=== PATIENT | female | born 1955 | race Caucasian/White ===

== ENCOUNTER 2018-10-25 12:09 | Inpatient (IN) | payer MEDICAID ==
[~2018-10-25] VITALS: Ht 165.1 cm; Wt 52.0 kg
[~2018-10-25 12:09] MED LIST: ALBU8.5H8 INH; BUPR1FIL3 SL; FLUT1DIS4 INH; GABA-532 PO
[2018-10-25 13:27] LABS: BASOPHILS # (AUTO) 0.1 X10'3 (0-0.2); MEAN PLATELET VOLUME 7.3 FL (7.4-10.4); PLATELET COUNT 385 X10'3 (140-440)
[2018-10-25 13:28] LABS: BASOPHILS % (AUTO) 0.5 % (0-1); EOSINOPHILS # (AUTO) 0.1 X10'3 (0-0.9); EOSINOPHILS % (AUTO) 0.3 % (0-6); HEMATOCRIT 39.1 % (35.0-45.0); HEMOGLOBIN 13.1 g/dl (12.0-16.0); LYMPHOCYTES # (AUTO) 1.2 X10'3 (1.1-4.8); LYMPHOCYTES % (AUTO) 6.3 % (21-51); MEAN CORPUSCULAR HEMOGLOBIN 30.6 PG (27.0-31.0); MEAN CORPUSCULAR HGB CONC 33.6 g/dL (33.0-36.5); MEAN CORPUSCULAR VOLUME 91.1 FL (78-98); MONOCYTES # (AUTO) 1.4 X10'3 (0-0.9); MONOCYTES % (AUTO) 7.3 % (2-12); NEUTROPHILS # (AUTO) 16.8 X10'3 (1.8-7.7); NEUTROPHILS % (AUTO) 85.6 % (42-75); RED BLOOD COUNT 4.29 X10'6 (4.20-5.60); RED CELL DISTRIBUTION WIDTH 14.7 % (11.5-14.5); WHITE BLOOD COUNT 19.6 X10'3 (4.5-11.0)
[2018-10-25 13:32] LABS: ALANINE AMINOTRANSFERASE 22 U/L (12-78); ALBUMIN 2.8 G/DL (3.4-5.0); ALBUMIN/GLOBULIN RATIO 0.6 (1.1-1.5); ALKALINE PHOSPHATASE 115 IU/L (46-116); ANION GAP 8 (8-16); ASPARTATE AMINO TRANSFERASE 14 U/L (10-37); BILIRUBIN,TOTAL 0.4 MG/DL (0.1-1.0); BLOOD UREA NITROGEN 12 MG/DL (7-18); BUN/CREATININE RATIO 12.6 (6.6-38.0); CALCIUM 9.8 MG/DL (8.5-10.1); CHLORIDE 97 MMOL/L (99-107); CREATININE 0.95 MG/DL (0.40-0.90); GLUCOSE 116 MG/DL (70-104); POTASSIUM 4.1 MMOL/L (3.5-5.1); SODIUM 132 MMOL/L (135-145); TOTAL CARBON DIOXIDE 27.4 MMOL/L (24-32); TOTAL PROTEIN 7.3 G/DL (6.4-8.2); eGFR 59 ML/MIN
[2018-10-25 13:59] LABS: PLATELET ESTIMATE NORMAL; TOTAL CELLS COUNTED 100
[2018-10-25 14:13] LABS: CLARITY,URINE CLEAR (Clear); COLOR,URINE YELLOW (Yellow); GLUCOSE, URINE NEGATIVE (Neg); KETONES,URINE NEGATIVE (Neg); LEUKOCYTE ESTERASE ,URINE NEGATIVE (Neg); NITRITES, URINE NEGATIVE (Neg); OCCULT BLOOD,URINE SMALL (Neg); PROTEIN,URINE NEGATIVE (Neg); UROBILINOGEN,URINE 0.2 E.U/dL (0.2-1.0)
[2018-10-25 14:24] LABS: UA COLLECTION TYPE CLN CATCH MIDSTREAM
[2018-10-25 14:25] LABS: BACTERIA,URINE FEW /HPF (Neg); SQUAMOUS EPITHELIAL CELL,UR FEW /LPF (FEW); WBC,URINE 0-4 /HPF (0-4)
[2018-10-25] MEDS ORDERED: CefTRIAXone 2gm/D5W 50ml 50 ML IV ONE (14:50)
[2018-10-25] MEDS ORDERED: normal saline 1000ML IV soln IV ONE (14:50)
[2018-10-25] MEDS ORDERED: methylPREDNISolone sod succ 125mg/2ml vial IV ONE (14:55)
[2018-10-25] MEDS ORDERED: ipratropium/albuterol 3ml nebule NEB ONE (14:55)
[2018-10-25] MEDS ORDERED: diphenhydrAMINE 25mg capsule PO PRN (15:05)
[2018-10-25] MEDS ORDERED: potassium Cl 20 mEq SR tablet PO PRN ×2 (15:05)
[2018-10-25] MEDS: K and/or MAG REPLACEMENT MC SCH (15:05)
[2018-10-25] MEDS ORDERED: acetaminophen 325mg tablet PO PRN ×2 (15:05)
[2018-10-25] MEDS ORDERED: HYDROcodone/acetaminophen 5mg/325mg tablet PO PRN (15:05)
[2018-10-25] MEDS ORDERED: potassium Cl 40MEQ/NS 500ml 500 ML IV PRN ×2 (15:05)
[2018-10-25] MEDS ORDERED: mag hydrox/Alum hydrox/simeth 30ml oral suspension PO PRN (15:05)
[2018-10-25] MEDS ORDERED: ondansetron/PF 4mg/2ml inj IV PRN (15:05)
[2018-10-25] MEDS ORDERED: magnesium 4gm in 100ml NS 100 ML IV PRN (15:05)
[2018-10-25] MEDS ORDERED: magnesium hydroxide 30ml (MOM) UD suspension PO PRN (15:05)
[2018-10-25] MEDS ORDERED: magnesium Cl slow-release 64mg tablet PO PRN (15:05)
[2018-10-25] MEDS ORDERED: magnesium 2GM in 50ml NS 50 ML IV PRN (15:05)
[2018-10-25] MEDS ORDERED: morphine 4 MG/ML inj SYRINge IV PRN (15:05)
[2018-10-25 15:19] LABS: MAGNESIUM 2.1 MG/DL (1.5-2.4)
[2018-10-25 15:27] LABS: PARTIAL THROMBOPLASTIN TIME 41 SECONDS (22-32)
[2018-10-25] MEDS ORDERED: ALBU2.5V12 NEB (15:44)
[2018-10-25] MEDS ORDERED: FLUT1DIS4 INH (15:44)
[2018-10-25] MEDS ORDERED: AMIT-189 PO (15:44)
[2018-10-25] MEDS: levoFLOXACIN-Levaquin 750MG/D5 150 ML IV SCH (15:51)
[2018-10-25] MEDS ORDERED: non-formulary drug (Albuterol Sulfate 1 VIAL) NEB PRN (17:25)
[2018-10-25] MEDS ORDERED: albuterol 2.5 MG/3 ML nebule NEB PRN (17:25)
[2018-10-25] MEDS: normal saline 1000ml 1,000 ML IV SCH (17:26)
[2018-10-25] MEDS ORDERED: nicotine 21mg patch - 24 hr TD ONE (18:10)
[2018-10-25 18:23] LABS: URINE HCG NEGATIVE (NEG)
[2018-10-25 18:32] LABS: URINE AMPHETAMINE SCREEN NEGATIVE (Neg); URINE BARBITUATE SCREEN NEGATIVE (Neg); URINE BENZODIAZEPINES SCREEN NEGATIVE (Neg); URINE CANNABINOID SCREEN NEGATIVE (Neg); URINE COCAINE SCREEN NEGATIVE (Neg); URINE METHADONE SCREEN NEGATIVE (Neg); URINE OPIATE SCREEN NEGATIVE (Neg); URINE PHENCYCLIDINE SCREEN NEGATIVE (Neg)
[2018-10-25] MEDS ORDERED: albuterol 2.5 MG/3 ML nebule NEB SCH (19:00)
[2018-10-25 20:00] VITALS: BP 97/52
[2018-10-25] MEDS ORDERED: non-formulary drug (Fluticasone/Salmeterol (Advair 250-50 Diskus) 1 PUFFS) INH SCH (20:00)
--- NOTE | 2018-10-25 20:13 | NUR ---
REPORT CALLED TO LEORA VARGAS, REVIEWED PT CURRENT CONDITION, LABS AND DIAGNOSIS. I ANSWERED HER QUESTIONS TO THE BEST OF MY KNOWLEDGE. PT TRANSPORTED WITH HER BELONGINGS TO THE FLOOR.
--- NOTE | 2018-10-25 20:30 | NUR ---
Pt report received from Az VARGAS in the ED. Pt arrived on the unit via gurney at 2030. VSS, NS running at 100, O2 via NC at 2L. Pt placed on tele #6. No signs of distress, will continue to monitor.
[2018-10-25] MEDS: ipratropium/albuterol 3ml nebule NEB SCH ×2 (20:35→23:36)
[2018-10-25] MEDS: budesonide 0.5mg/2ml UD nebule IH SCH (20:35)
[2018-10-25] MEDS: amitryptiline 50mg tablet PO SCH (21:00)
[2018-10-25] MEDS: gabapentin 300mg capsule PO SCH (21:12)
[2018-10-25] MEDS: heparin, porcine 5000 units/ml vial SQ SCH (21:13)
[2018-10-25] MEDS: methylPREDNISolone sod succ 125mg/2ml vial IV SCH (21:13)
[2018-10-26] VITALS: BP 121/53
[2018-10-26] MEDS: zolpidem 5mg tablet PO PRN (00:54)
[2018-10-26] MEDS: normal saline 1000ml 1,000 ML IV SCH (00:59)
[2018-10-26] MEDS: methylPREDNISolone sod succ 125mg/2ml vial IV SCH ×4 (02:19→21:10)
[2018-10-26] MEDS: ipratropium/albuterol 3ml nebule NEB SCH ×7 (03:16→23:02)
[2018-10-26 05:09] LABS: BASOPHILS # (AUTO) 0.1 X10'3 (0-0.2); BASOPHILS % (AUTO) 0.4 % (0-1); EOSINOPHILS % (AUTO) 0 % (0-6); HEMATOCRIT 35.5 % (35.0-45.0); HEMOGLOBIN 11.6 g/dl (12.0-16.0); LYMPHOCYTES # (AUTO) 0.8 X10'3 (1.1-4.8); LYMPHOCYTES % (AUTO) 5.1 % (21-51); MEAN CORPUSCULAR HEMOGLOBIN 30.1 PG (27.0-31.0); MEAN CORPUSCULAR HGB CONC 32.6 g/dL (33.0-36.5); MEAN CORPUSCULAR VOLUME 92.3 FL (78-98); MEAN PLATELET VOLUME 7.5 FL (7.4-10.4); MONOCYTES # (AUTO) 0.3 X10'3 (0-0.9); MONOCYTES % (AUTO) 2.2 % (2-12); NEUTROPHILS # (AUTO) 14.5 X10'3 (1.8-7.7); NEUTROPHILS % (AUTO) 92.3 % (42-75); PLATELET COUNT 373 X10'3 (140-440); RED BLOOD COUNT 3.85 X10'6 (4.20-5.60); WHITE BLOOD COUNT 15.7 X10'3 (4.5-11.0)
[2018-10-26 05:40] LABS: ALANINE AMINOTRANSFERASE 20 U/L (12-78); ALBUMIN 2.3 G/DL (3.4-5.0); ALBUMIN/GLOBULIN RATIO 0.6 (1.1-1.5); ALKALINE PHOSPHATASE 98 IU/L (46-116); ANION GAP 9 (8-16); ASPARTATE AMINO TRANSFERASE 14 U/L (10-37); BILIRUBIN,TOTAL 0.1 MG/DL (0.1-1.0); BLOOD UREA NITROGEN 10 MG/DL (7-18); BUN/CREATININE RATIO 10.6 (6.6-38.0); CALCIUM 9.1 MG/DL (8.5-10.1); CHLORIDE 105 MMOL/L (99-107); CREATININE 0.94 MG/DL (0.40-0.90); GLUCOSE 250 MG/DL (70-104); MAGNESIUM 1.9 MG/DL (1.5-2.4); PHOSPHORUS 2.5 MG/DL (2.3-4.5); POTASSIUM 3.4 MMOL/L (3.5-5.1); SODIUM 139 MMOL/L (135-145); TOTAL CARBON DIOXIDE 24.6 MMOL/L (24-32); TOTAL PROTEIN 6.4 G/DL (6.4-8.2); eGFR 60 ML/MIN
--- NOTE | 2018-10-26 06:39 | NUR ---
Problems reprioritized. Patient report given, questions answered & plan of care reviewed with Clara VARGAS.
[2018-10-26 08:00] VITALS: BP 119/67
[2018-10-26] MEDS: K and/or MAG REPLACEMENT MC SCH (08:00)
[2018-10-26] MEDS ORDERED: NALOXONE HCL SL SCH (08:00)
[2018-10-26] MEDS ORDERED: BUPRENORPHINE HCL SL SCH (08:00)
[2018-10-26] MEDS ORDERED: [UNRECOGNIZED DRUG - OTHER] SL SCH (08:00)
[2018-10-26] MEDS: heparin, porcine 5000 units/ml vial SQ SCH ×2 (08:54→21:10)
[2018-10-26] MEDS: buprenorphine/naloxone 8MG-2MG SUBlingual film SL SCH (08:58)
[2018-10-26] MEDS: levoFLOXACIN-Levaquin 750MG/D5 150 ML IV SCH (08:58)
[2018-10-26] MEDS: gabapentin 300mg capsule PO SCH ×2 (08:58→13:00)
[2018-10-26] MEDS: budesonide 0.5mg/2ml UD nebule IH SCH ×2 (11:39→20:12)
[2018-10-26 12:00] VITALS: BP 117/68
--- NOTE | 2018-10-26 18:29 | NUR ---
Patient in room [facility] 355. I have received report from ALICIA Elizabeth and had the opportunity to ask questions and assume patient care. Addendum: 10/26/18 at 1829 by Jill Fitzgerald RN Amended: Links added.
[2018-10-26 20:00] VITALS: BP 92/50
[2018-10-26] MEDS: gabapentin 400mg capsule PO SCH (21:10)
[2018-10-26] MEDS: amitryptiline 50mg tablet PO SCH (21:10)
[2018-10-27] VITALS: BP 113/64
[2018-10-27] MEDS: zolpidem 5mg tablet PO PRN (02:33)
[2018-10-27] MEDS: methylPREDNISolone sod succ 125mg/2ml vial IV SCH ×3 (02:33→14:12)
[2018-10-27] MEDS: ipratropium/albuterol 3ml nebule NEB SCH ×4 (03:19→14:39)
[2018-10-27 05:21] LABS: BASOPHILS % (AUTO) 0.1 % (0-1); EOSINOPHILS % (AUTO) 0 % (0-6); HEMATOCRIT 34.5 % (35.0-45.0); HEMOGLOBIN 11.6 g/dl (12.0-16.0); LYMPHOCYTES % (AUTO) 4.2 % (21-51); MEAN CORPUSCULAR HEMOGLOBIN 30.7 PG (27.0-31.0); MEAN CORPUSCULAR HGB CONC 33.5 g/dL (33.0-36.5); MEAN CORPUSCULAR VOLUME 91.6 FL (78-98); MEAN PLATELET VOLUME 7.6 FL (7.4-10.4); MONOCYTES # (AUTO) 0.7 X10'3 (0-0.9); MONOCYTES % (AUTO) 2.8 % (2-12); NEUTROPHILS # (AUTO) 22.8 X10'3 (1.8-7.7); NEUTROPHILS % (AUTO) 92.9 % (42-75); PLATELET COUNT 455 X10'3 (140-440); RED BLOOD COUNT 3.77 X10'6 (4.20-5.60); WHITE BLOOD COUNT 24.6 X10'3 (4.5-11.0)
[2018-10-27 05:25] LABS: ALANINE AMINOTRANSFERASE 21 U/L (12-78); ALBUMIN 2.3 G/DL (3.4-5.0); ALBUMIN/GLOBULIN RATIO 0.6 (1.1-1.5); ALKALINE PHOSPHATASE 88 IU/L (46-116); ANION GAP 4 (8-16); ASPARTATE AMINO TRANSFERASE 14 U/L (10-37); BILIRUBIN,TOTAL 0.1 MG/DL (0.1-1.0); BLOOD UREA NITROGEN 10 MG/DL (7-18); BUN/CREATININE RATIO 11.5 (6.6-38.0); CALCIUM 9.3 MG/DL (8.5-10.1); CHLORIDE 109 MMOL/L (99-107); CREATININE 0.87 MG/DL (0.40-0.90); GLUCOSE 148 MG/DL (70-104); MAGNESIUM 2.3 MG/DL (1.5-2.4); PHOSPHORUS 2.6 MG/DL (2.3-4.5); POTASSIUM 4.6 MMOL/L (3.5-5.1); SODIUM 142 MMOL/L (135-145); TOTAL CARBON DIOXIDE 28.8 MMOL/L (24-32); TOTAL PROTEIN 6.2 G/DL (6.4-8.2); eGFR 65 ML/MIN
--- NOTE | 2018-10-27 06:29 | NUR ---
Problems reprioritized. Patient report given, questions answered & plan of care reviewed with ALICIA MAY.
[2018-10-27 07:36] LABS: PLATELET ESTIMATE INCREASED; TOTAL CELLS COUNTED 100
[2018-10-27 08:00] VITALS: BP 103/50
[2018-10-27] MEDS: K and/or MAG REPLACEMENT MC SCH (08:00)
[2018-10-27] MEDS: budesonide 0.5mg/2ml UD nebule IH SCH (08:28)
[2018-10-27] MEDS: levoFLOXACIN-Levaquin 750MG/D5 150 ML IV SCH (08:59)
[2018-10-27] MEDS: buprenorphine/naloxone 8MG-2MG SUBlingual film SL SCH (09:00)
[2018-10-27] MEDS: heparin, porcine 5000 units/ml vial SQ SCH (09:01)
[2018-10-27] MEDS: gabapentin 400mg capsule PO SCH ×2 (09:01→14:14)
[2018-10-27 11:05] LABS: BASOPHILS % (AUTO) 0.2 % (0-1); EOSINOPHILS % (AUTO) 0.1 % (0-6); HEMATOCRIT 36.7 % (35.0-45.0); HEMOGLOBIN 11.8 g/dl (12.0-16.0); LYMPHOCYTES # (AUTO) 1.3 X10'3 (1.1-4.8); LYMPHOCYTES % (AUTO) 5.2 % (21-51); MEAN CORPUSCULAR HEMOGLOBIN 29.9 PG (27.0-31.0); MEAN CORPUSCULAR HGB CONC 32.3 g/dL (33.0-36.5); MEAN CORPUSCULAR VOLUME 92.6 FL (78-98); MEAN PLATELET VOLUME 7.4 FL (7.4-10.4); MONOCYTES # (AUTO) 1.3 X10'3 (0-0.9); MONOCYTES % (AUTO) 5.3 % (2-12); NEUTROPHILS % (AUTO) 89.2 % (42-75); PLATELET COUNT 492 X10'3 (140-440); RED BLOOD COUNT 3.96 X10'6 (4.20-5.60); WHITE BLOOD COUNT 24.6 X10'3 (4.5-11.0)
[2018-10-27 12:00] VITALS: BP 113/53
[2018-10-27] MEDS ORDERED: LEVO500T89 PO (15:43)
[2018-10-27] MEDS ORDERED: ZOLP5TAB8 PO (15:43)
[2018-10-27] MEDS ORDERED: NICO-687 TOP (15:43)
[2018-10-27] MEDS ORDERED: PRED10TA23 PO (15:43)
== END 2018-10-27 17:16 | disposition home or self-care (01) | DRG 133 ==
LOC: ER 12:10 → ED HOLD 15:04 → SUR 3N 20:21
PROVIDERS: ADMIT Family Medicine; ATTEND Family Medicine
DX: J96.01 Acute respiratory failure with hypoxia (principal); J18.1 Lobar pneumonia, unspecified organism; E86.1 Hypovolemia; E87.1 Hypo-osmolality and hyponatremia; J44.0 Chronic obstructive pulmonary disease with (acute) lower respiratory infection; F17.210 Nicotine dependence, cigarettes, uncomplicated; J44.1 Chronic obstructive pulmonary disease with (acute) exacerbation; M79.7 Fibromyalgia; F32.9 Major depressive disorder, single episode, unspecified; F41.9 Anxiety disorder, unspecified; Z90.710 Acquired absence of both cervix and uterus; Z88.5 Allergy status to narcotic agent; Z88.0 Allergy status to penicillin; Z88.8 Allergy status to other drugs, medicaments and biological substances; Z80.9 Family history of malignant neoplasm, unspecified; Z82.49 Family history of ischemic heart disease and other diseases of the circulatory system; Z71.6 Tobacco abuse counseling
CPT/HCPCS: 36415; 71046; 80053; 80305; 81001; 81025; 83605; 83735; 84100; 84145; 85025; 85610; 85730; 87040; 87070; 93005; 93306; 94640; 94760; 96374; 96375; 97116; 97162; 99285; G0378; J0696; J1644; J1956; J2405; J2930; J7030; J7626

== ENCOUNTER 2023-06-09 11:45 | Emergency (ER) | payer MEDICAID ==
[~2023-06-09] VITALS: Ht 165.1 cm; Wt 42.3 kg
[~2023-06-09 11:45] MED LIST changes: +ALBU2.5V12 NEB; -ALBU8.5H8 INH; +AMIT50TA15 PO; +ZOLP5TAB8 PO
[2023-06-09] MEDS ORDERED: ketorolac trometh inj. 60 MG/2 ML VIAL IM ONE (13:20)
[2023-06-09] MEDS ORDERED: CEFD300C3 PO (13:24)
[2023-06-09 14:12] VITALS: BP 124/74; PULSE 92; RESP 16; TEMP 97.9; O2SAT 91
--- NOTE | 2023-06-09 15:09 | NUR ---
Pt. documentation completed by METAL FABRICATOR reviewed and concur with METAL FABRICATOR.
== END 2023-06-10 06:39 | disposition home or self-care (01) ==
LOC: ER 11:47
DX: J20.9 Acute bronchitis, unspecified (principal); F31.9 Bipolar disorder, unspecified; Z88.8 Allergy status to other drugs, medicaments and biological substances; Z79.899 Other long term (current) drug therapy; Z88.0 Allergy status to penicillin; Z88.1 Allergy status to other antibiotic agents
CPT/HCPCS: 96372; 99283; J1885

== ENCOUNTER 2023-06-14 21:01 | Inpatient (IN) | payer MEDICAID ==
[~2023-06-14] VITALS: Ht 167.6 cm; Wt 53.2 kg
[~2023-06-14 21:01] MED LIST changes: +CEFD300C3 PO
[2023-06-14 21:59] LABS: BILIRUBIN,URINE SMALL (Neg); CLARITY,URINE SLIGHTLY CLOUDY (Clear); COLOR,URINE YELLOW (Yellow); GLUCOSE, URINE NEGATIVE (Neg); KETONES,URINE TRACE mg/dl (Neg); LEUKOCYTE ESTERASE ,URINE NEGATIVE (Neg); NITRITES, URINE NEGATIVE (Neg); OCCULT BLOOD,URINE TRACE-INTACT (Neg); PH,URINE 5.5 (4.8-8.0); PROTEIN,URINE NEGATIVE (Neg); UROBILINOGEN,URINE 0.2 E.U/dL (0.2-1.0)
[2023-06-14 22:00] LABS: ABG BASE EXCESS 5.2 mmol/L (-2.0-2.0); ABG HCO3 31.8 mmol/L (22.0-26.0); ABG OXYGEN SATURATION 89.2 % (94-97); ABG PCO2 (T) 51.4 mmHg (32.0-45.0); ABG PH (T) 7.406 (7.350-7.450); ABG PO2 (T) 55.2 mmHg (75.0-100.0); FCOHb 2.3 % (0.0-3.9); FHHb 10.5 % (0.0-5.0); FLOW 5 L/min; FMetHb 0.2 % (0.0-1.5); MODE OXYMIZER; PATIENT TEMPERATURE 36.3; TOTAL HEMOGLOBIN 16.9 G/dl (12.0-16.0)
[2023-06-14] MEDS ORDERED: normal saline 1000ml 1,000 ML IV ONE (22:05)
[2023-06-14 22:08] LABS: UA COLLECTION TYPE STRAIGHT CATH
[2023-06-14 22:11] LABS: MUCUS STRANDS FEW /LPF (Neg); SQUAMOUS EPITHELIAL CELL,UR FEW /LPF (FEW); TRANSITIONAL EPI CELLS,URINE FEW /HPF
[2023-06-14 22:15] LABS: AMORPHOUS URATES 4+; BACTERIA,URINE FEW /HPF (Neg); RBC,URINE 0-2 /HPF (0-2); WBC,URINE 0-4 /HPF (0-4)
[2023-06-14 22:18] LABS: URINE AMPHETAMINE SCREEN NEGATIVE (Neg); URINE BARBITUATE SCREEN NEGATIVE (Neg); URINE BENZODIAZEPINES SCREEN NEGATIVE (Neg); URINE CANNABINOID SCREEN NEGATIVE (Neg); URINE COCAINE SCREEN NEGATIVE (Neg); URINE METHADONE SCREEN NEGATIVE (Neg); URINE OPIATE SCREEN NEGATIVE (Neg); URINE PHENCYCLIDINE SCREEN NEGATIVE (Neg)
[2023-06-14] MEDS ORDERED: azithromycin/NS 500mg/250ml 250 ML IV ONE (23:25)
[2023-06-14] MEDS ORDERED: CefTRIAXone 2gm/D5W 50ml BAG 50 ML IV ONE (23:25)
[2023-06-15] VITALS (15 sets, daily range): BP systolic 86–119; BP diastolic 34–69; PULSE 72–92; RESP 11–20; TEMP 96.7–98.2; O2SAT 88–96
[2023-06-15 00:26] LABS: BASOPHILS # (AUTO) 0.3 X10'3 (0-0.2); BASOPHILS % (AUTO) 1.4 % (0-1); EOSINOPHILS # (AUTO) 0.1 X10'3 (0-0.9); EOSINOPHILS % (AUTO) 0.4 % (0-6); HEMATOCRIT 46.6 % (35.0-45.0); HEMOGLOBIN 15.3 g/dl (12.0-16.0); LYMPHOCYTES # (AUTO) 0.4 X10'3 (1.1-4.8); LYMPHOCYTES % (AUTO) 1.7 % (21-51); MEAN CORPUSCULAR HEMOGLOBIN 30.6 PG (27.0-31.0); MEAN CORPUSCULAR HGB CONC 32.8 g/dL (33.0-36.5); MEAN CORPUSCULAR VOLUME 93.2 FL (78-98); MEAN PLATELET VOLUME 7.6 FL (7.4-10.4); MONOCYTES # (AUTO) 0.6 X10'3 (0-0.9); MONOCYTES % (AUTO) 2.6 % (2-12); NEUTROPHILS % (AUTO) 93.9 % (42-75); PLATELET COUNT 333 X10'3 (140-440); RED CELL DISTRIBUTION WIDTH 15.7 % (11.5-14.5); WHITE BLOOD COUNT 23.4 X10'3 (4.5-11.0)
--- NOTE | 2023-06-15 00:40 | NUR ---
JESUS PUGH, IS ABLE TO POULTRY PICKER IF PT D/C DOLORES. CONTACT # IS [phone]
[2023-06-15 00:43] LABS: LACTIC SEPSIS 1.2 MMOL/L (0.4-2.0)
[2023-06-15 00:49] LABS: AMMONIA < 10 UMOL/L (11-32)
[2023-06-15 00:50] LABS: ALANINE AMINOTRANSFERASE 22 U/L (12-78); ALBUMIN 1.9 G/DL (3.4-5.0); ALBUMIN/GLOBULIN RATIO 0.5 (1.1-1.5); ALKALINE PHOSPHATASE 90 IU/L (46-116); ANION GAP 8 (8-16); ASPARTATE AMINO TRANSFERASE 27 U/L (10-37); BILIRUBIN,TOTAL 0.4 MG/DL (0.1-1.0); BLOOD UREA NITROGEN 73 MG/DL (7-18); BUN/CREATININE RATIO 49.7 (10.0-20.0); CALCIUM 8.5 MG/DL (8.5-10.1); CHLORIDE 94 MMOL/L (99-107); CREATINE KINASE 282 U/L (26-192); CREATININE 1.47 MG/DL (0.40-0.90); GLUCOSE 97 MG/DL (70-104); PRO BRAIN NATRIURETIC PEPTIDE 1145 PG/ML (0-125); SODIUM 132 MMOL/L (135-145); THYROID STIMULATING HORMONE 0.74 ulU/ml (0.34-4.50); TOTAL CARBON DIOXIDE 30.2 MMOL/L (24-32); TOTAL PROTEIN 5.6 G/DL (6.4-8.2); eCRCL 30 ML/MIN; eGFR 35 ML/MIN
[2023-06-15 00:51] LABS: ETHANOL < 10 MG/DL (<10)
[2023-06-15 01:19] LABS: PLATELET ESTIMATE NORMAL; TOTAL CELLS COUNTED 100
[2023-06-15] MEDS ORDERED: magnesium 4gm in 100ml NS 100 ML IV PRN (01:40)
[2023-06-15] MEDS ORDERED: potassium Cl 20 mEq SR tablet PO PRN ×2 (01:40)
[2023-06-15] MEDS ORDERED: potassium Cl 40MEQ/1/2NS 520ml 520 ML IV PRN (01:40)
[2023-06-15] MEDS ORDERED: metoclopramide 5 mg/ml inj IV PRN (01:40)
[2023-06-15] MEDS ORDERED: acetaminophen 650mg rectal suppository RC PRN (01:40)
[2023-06-15] MEDS ORDERED: magnesium Cl slow-release 64mg tablet PO PRN (01:40)
[2023-06-15] MEDS ORDERED: magnesium 2GM in 50ml NS 50 ML IV PRN (01:40)
[2023-06-15] MEDS ORDERED: ondansetron/PF 4mg/2ml inj IV PRN (01:40)
[2023-06-15] MEDS ORDERED: normal saline 1000ml 1,000 ML IV SCH (01:40)
--- NOTE | 2023-06-15 01:52 | NUR ---
this rn called pharmacy for a 40mEq K in 520mL 1/2NS bag. will administer after getting from pharmacy.
--- NOTE | 2023-06-15 03:30 | NUR ---
Pt arrived to unit on a gurney from ED at 0312, admitted for sepsis, PNA, and ALOC. Pt is sleepy but responds appropriately when spoken to. Pt has a 18G PIV to the VALERIANO. NS running at 100ml/hr and potassium 40meq in 1/2NS running at 130/hr. Skin looks good, some redness to coccyx with optifoam in place prophylactically. Lung sounds wheezy bilaterally throughout. Pt is on 10L venturi mask, oxygen saturation of 94%.
--- NOTE | 2023-06-15 06:50 | NUR ---
Problems reprioritized. Patient report given, questions answered & plan of care reviewed with ALICIA Richardson. Pt stable at shift change.
--- NOTE | 2023-06-15 07:34 | NUR ---
Patient in room PCU 3025. I have received report from ALICIA DANIELS, and had the opportunity to ask questions and assume patient care.
[2023-06-15] MEDS: K and/or MAG REPLACEMENT MC SCH ×2 (08:00→20:00)
[2023-06-15] MEDS ORDERED: levoFLOXACIN-Levaquin 500mg/D5 100 ML IV ONE (08:00)
[2023-06-15] MEDS ORDERED: normal saline 1000ml 1,000 ML IV ONE (08:40)
[2023-06-15 09:02] LABS: MAGNESIUM 2.1 MG/DL (1.5-2.4); POTASSIUM 3.8 MMOL/L (3.5-5.1)
[2023-06-15] MEDS ORDERED: ipratropium/albuterol 3ml nebule NEB PRN ×2 (10:15→12:40)
--- NOTE | 2023-06-15 12:00 | NUR ---
PAGE SENT [id number], CAMILA FAN, PLACE VENTURI MASK BACK ON. PT'S O2 IS 84-85%. THANK YOU, FELISA [phone]
[2023-06-15] MEDS ORDERED: levoFLOXACIN-Levaquin 500mg/D5 100 ML IV SCH (12:25)
[2023-06-15] MEDS ORDERED: methylPREDNISolone sod succ 125mg/2ml vial IV ONE (12:25)
[2023-06-15] MEDS: normal saline 1000ml 1,000 ML IV SCH (12:25)
--- NOTE | 2023-06-15 12:33 | NUR ---
PAGE SENT [id number], KEYANNA FAN, PT'S O2 78-85. VENTURI MASK 15L. PLEASE COME AND ASSESS. THANK YOU, FELISA Petersen [phone]
--- NOTE | 2023-06-15 12:42 | NUR ---
Paged RT due to patient's O2 SATS 85% on 15L.
[2023-06-15] MEDS ORDERED: levoFLOXACIN-Levaquin 250mg/D5 50 ML IV SCH (12:44)
[2023-06-15] MEDS ORDERED: levoFLOXACIN-Levaquin 250mg/D5 50 ML IV ONE (12:50)
--- NOTE | 2023-06-15 14:20 | NUR ---
Received TC from RN requesting RD visit to assess nutrition status/need for nutrition intervention per resident request. Per EMR pt admit for ALOC, PNA, sepsis, and renal failure. Noted pt with a low BMI for age using wt of 53.2 kg and ht of 66". Per EMR hx pt 65" and wt appears stable with range 51.3-55 kg 06/02/11-10/25/18. Attempted visit with pt at bedside however pt very sleepy though requesting food and endorsing hunger. Pt provided with RD contact information and encouraged to reach out if needed. Pt NPO on admit, d/w RN recommendation for regular diet given minimal PMH and recommendation to wait on implementing ONS until PO intake trends are available so most appropriate nutrition intervention can be implemented. Information obtained from pt and EMR was also d/w RN. LBM 06/12 per EMR. Pt currently not receiving routine bowel care though with PRN Reglan available. Will continue to follow closely and make recommendations as appropriate. Recommendations: 1) Continue regular diet 2) Monitor need for ONS/additional protein 3) Routine bowel care 4) Weekly scaled weights Addendum: 06/15/23 at [address] Amended: Links added.
[2023-06-15] MEDS: methylPREDNISolone sod succ/PF 40mg inj. IV SCH ×2 (16:47→20:23)
[2023-06-15] MEDS ORDERED: IPRA3AMP31 NEB (18:09)
[2023-06-15] MEDS ORDERED: BUDE10.2 PO (18:09)
[2023-06-15] MEDS ORDERED: non-formulary drug (Albuterol Sulfate 1 VIAL) NEB PRN (18:15)
--- NOTE | 2023-06-15 19:01 | NUR ---
Problems reprioritized. Patient report given, questions answered & plan of care reviewed with ALICIA DANIELS.
[2023-06-15] MEDS: gabapentin 300mg capsule PO SCH (20:21)
[2023-06-15] MEDS: buprenorphine/naloxone 8MG-2MG SUBlingual film SL PRN (20:23)
[2023-06-16] VITALS (19 sets, daily range): BP systolic 93–118; BP diastolic 43–65; PULSE 71–86; RESP 10–20; TEMP 97–97.6; O2SAT 91–98
[2023-06-16] MEDS: normal saline 1000ml 1,000 ML IV SCH ×3 (01:45→22:43)
[2023-06-16] MEDS: methylPREDNISolone sod succ/PF 40mg inj. IV SCH ×4 (02:14→19:38)
--- NOTE | 2023-06-16 05:50 | NUR ---
Nurse hung NS per order, NS would not scan.
--- NOTE | 2023-06-16 06:37 | NUR ---
Problems reprioritized. Patient report given, questions answered & plan of care reviewed with Ruth VARGAS. Pt stable at shift change.
[2023-06-16] MEDS: K and/or MAG REPLACEMENT MC SCH ×2 (08:00→19:36)
[2023-06-16] MEDS ORDERED: levoFLOXACIN-Levaquin 250mg/D5 50 ML IV SCH (08:00)
[2023-06-16] MEDS: gabapentin 300mg capsule PO SCH ×2 (08:42→19:37)
[2023-06-16] MEDS: buprenorphine/naloxone 8MG-2MG SUBlingual film SL PRN ×2 (08:43→18:02)
[2023-06-16 09:27] LABS: HEMATOCRIT 46.1 % (35.0-45.0); LYMPHOCYTES # (AUTO) 0.3 X10'3 (1.1-4.8); LYMPHOCYTES % (AUTO) 1.5 % (21-51); MEAN PLATELET VOLUME 7.9 FL (7.4-10.4); MONOCYTES # (AUTO) 0.4 X10'3 (0-0.9)
[2023-06-16 09:29] LABS: BASOPHILS # (AUTO) 0.1 X10'3 (0-0.2); BASOPHILS % (AUTO) 0.6 % (0-1); EOSINOPHILS % (AUTO) 0.1 % (0-6); HEMOGLOBIN 15.2 g/dl (12.0-16.0); MEAN CORPUSCULAR VOLUME 94.1 FL (78-98); MONOCYTES % (AUTO) 2.3 % (2-12); NEUTROPHILS # (AUTO) 16.7 X10'3 (1.8-7.7); NEUTROPHILS % (AUTO) 95.5 % (42-75); PLATELET COUNT 318 X10'3 (140-440); RED CELL DISTRIBUTION WIDTH 16.6 % (11.5-14.5); WHITE BLOOD COUNT 17.5 X10'3 (4.5-11.0)
[2023-06-16 09:59] LABS: ALBUMIN 1.7 G/DL (3.4-5.0); ANION GAP 6 (8-16); BLOOD UREA NITROGEN 30 MG/DL (7-18); CALCIUM 9.5 MG/DL (8.5-10.1); CHLORIDE 105 MMOL/L (99-107); CREATININE 0.75 MG/DL (0.40-0.90); GLUCOSE 168 MG/DL (70-104); SODIUM 138 MMOL/L (135-145); eCRCL 59 ML/MIN; eGFR 76 ML/MIN
[2023-06-16 10:01] LABS: POTASSIUM 4.1 MMOL/L (3.5-5.1)
[2023-06-16 10:14] LABS: ANISOCYTOSIS 1+; PLATELET ESTIMATE NORMAL; TOTAL CELLS COUNTED 100
[2023-06-16 10:15] LABS: BURR CELLS 1+
--- NOTE | 2023-06-16 15:22 | NUR ---
F/u: Pt seen at bedside, requests vanlary/strawberry caterina stating the chocolate feels "too heavy right now", d/w dietary. Addendum: 06/16/23 at [address] Amended: Links added.
--- NOTE | 2023-06-16 18:15 | NUR ---
Patient in room PCU 3025. I have received report from Ruth VARGAS and had the opportunity to ask questions and assume patient care.
[2023-06-16] MEDS: ipratropium/albuterol 3ml nebule NEB SCH ×2 (19:25→23:26)
[2023-06-16] MEDS ORDERED: iohexol 350MG/ML 100ml bottle IV ONE (21:55)
[2023-06-17] VITALS (22 sets, daily range): BP systolic 103–126; BP diastolic 50–81; PULSE 65–87; RESP 9–21; TEMP 97.4–98.8; O2SAT 92–97
[2023-06-17] MEDS: buprenorphine/naloxone 8MG-2MG SUBlingual film SL PRN ×6 (02:06→23:11)
[2023-06-17] MEDS: methylPREDNISolone sod succ/PF 40mg inj. IV SCH ×4 (02:09→21:40)
[2023-06-17] MEDS: ipratropium/albuterol 3ml nebule NEB SCH ×5 (03:36→21:03)
[2023-06-17] MEDS ORDERED: levoFLOXACIN-Levaquin 500mg/D5 100 ML IV SCH (08:00)
[2023-06-17 08:42] LABS: BASOPHILS % (AUTO) 0.1 % (0-1); EOSINOPHILS % (AUTO) 0 % (0-6); HEMATOCRIT 41.4 % (35.0-45.0); HEMOGLOBIN 13.4 g/dl (12.0-16.0); LYMPHOCYTES # (AUTO) 0.3 X10'3 (1.1-4.8); LYMPHOCYTES % (AUTO) 1.5 % (21-51); MEAN CORPUSCULAR HEMOGLOBIN 30.5 PG (27.0-31.0); MEAN CORPUSCULAR HGB CONC 32.4 g/dL (33.0-36.5); MEAN CORPUSCULAR VOLUME 93.9 FL (78-98); MEAN PLATELET VOLUME 7.4 FL (7.4-10.4); MONOCYTES # (AUTO) 0.7 X10'3 (0-0.9); NEUTROPHILS # (AUTO) 16.5 X10'3 (1.8-7.7); NEUTROPHILS % (AUTO) 94.4 % (42-75); PLATELET COUNT 342 X10'3 (140-440); RED BLOOD COUNT 4.41 X10'6 (4.20-5.60); RED CELL DISTRIBUTION WIDTH 16.6 % (11.5-14.5); WHITE BLOOD COUNT 17.5 X10'3 (4.5-11.0)
[2023-06-17 08:55] LABS: ALBUMIN 1.6 G/DL (3.4-5.0); ANION GAP 4 (8-16); BLOOD UREA NITROGEN 24 MG/DL (7-18); BUN/CREATININE RATIO 33.3 (10.0-20.0); CALCIUM 9.3 MG/DL (8.5-10.1); CHLORIDE 105 MMOL/L (99-107); CREATININE 0.72 MG/DL (0.40-0.90); GLUCOSE 150 MG/DL (70-104); MAGNESIUM 1.9 MG/DL (1.5-2.4); POTASSIUM 4.1 MMOL/L (3.5-5.1); SODIUM 137 MMOL/L (135-145); TOTAL CARBON DIOXIDE 28.5 MMOL/L (24-32); eCRCL 61 ML/MIN; eGFR 80 ML/MIN
[2023-06-17] MEDS: gabapentin 300mg capsule PO SCH ×2 (09:01→20:31)
[2023-06-17 09:03] LABS: PHOSPHORUS 1.2 MG/DL (2.3-4.5)
[2023-06-17] MEDS ORDERED: Neutra Phos packet PO PRN (09:25)
[2023-06-17] MEDS ORDERED: sodium phosphate inj. 15 MMOL in dextrose 5%-water 250 ML IV PRN (09:25)
[2023-06-17] MEDS ORDERED: sodium phosphate inj. 30 MMOL in dextrose 5%-water 250 ML IV PRN (09:25)
[2023-06-17] MEDS: K and/or MAG REPLACEMENT MC SCH ×2 (10:42→20:00)
[2023-06-17] MEDS: normal saline 1000ml 1,000 ML IV SCH (17:45)
[2023-06-17] MEDS: lactose-reduced food (Ensure Enlive) - 237ml bottle PO SCH (18:00)
[2023-06-18] VITALS (18 sets, daily range): BP systolic 125–142; BP diastolic 61–76; PULSE 66–87; RESP 8–24; TEMP 97.4–98.6; O2SAT 93–100
[2023-06-18] MEDS: ipratropium/albuterol 3ml nebule NEB SCH ×6 (00:28→20:12)
[2023-06-18] MEDS: methylPREDNISolone sod succ/PF 40mg inj. IV SCH ×3 (02:37→17:44)
--- NOTE | 2023-06-18 04:00 | NUR ---
I AGREE WITH DIRECTOR OF HOSPITALITY'S ASSESSMENT.
--- NOTE | 2023-06-18 06:22 | NUR ---
Patient report given to Alexandra VARGAS questions answered & plan of care reviewed with .
--- NOTE | 2023-06-18 06:30 | NUR ---
Patient in room PCU 3025. I have received report from Dino LAZAR and had the opportunity to ask questions and assume patient care.
[2023-06-18] MEDS: normal saline 1000ml 1,000 ML IV SCH ×2 (07:05→20:25)
[2023-06-18] MEDS: K and/or MAG REPLACEMENT MC SCH ×2 (08:00→20:00)
[2023-06-18] MEDS: lactose-reduced food (Ensure Enlive) - 237ml bottle PO SCH ×3 (08:46→18:00)
[2023-06-18] MEDS: buprenorphine/naloxone 8MG-2MG SUBlingual film SL PRN ×4 (08:49→22:44)
[2023-06-18] MEDS: gabapentin 300mg capsule PO SCH ×2 (08:51→20:42)
[2023-06-18] MEDS: levoFLOXACIN-Levaquin 750MG/D5 150 ML IV SCH (08:52)
--- NOTE | 2023-06-18 09:29 | NUR ---
Reassessment: Pt continues on regular diet and overall eating poorly, documented with 25-50% PO intake throughout LOS. Pt seen at bedside, states she would like to continue with milkshakes BIDLD and requests ice cream WB, d/w dietary. Pt agrees to an Ensure Enlive TID, to begin with lunch today. Pt denies any additional preferences/questions/concerns. Pt has RD contact information and has been encouraged to reach out if needed. LBM 06/12 per EMR. Pt received PRN Reglan 06/16. D/w dietary to send prunes and prune juice with next meal to assist with a BM though pt would benefit from routine bowel care. Will continue to follow closely. Recommendations: 1) Continue regular diet 2) Vanilla/strawberry Ensure Enlive TID 3) [place] food preferences: ice cream WB, vanilla/strawberry shake BIDLD; no chocolate 4) Encourage PO intake; monitor need for nutrition support 5) Routine bowel care 6) Weekly scaled weights Addendum: 06/18/23 at [address] Amended: Links added.
[2023-06-18 09:33] LABS: HEMATOCRIT 43.3 % (35.0-45.0)
[2023-06-18 09:36] LABS: HEMOGLOBIN 14.2 g/dl (12.0-16.0); MEAN CORPUSCULAR HEMOGLOBIN 30.8 PG (27.0-31.0); MEAN CORPUSCULAR HGB CONC 32.8 g/dL (33.0-36.5); MEAN CORPUSCULAR VOLUME 93.9 FL (78-98); MEAN PLATELET VOLUME 7.2 FL (7.4-10.4); PLATELET COUNT 375 X10'3 (140-440); RED BLOOD COUNT 4.61 X10'6 (4.20-5.60); RED CELL DISTRIBUTION WIDTH 16.5 % (11.5-14.5); WHITE BLOOD COUNT 16.1 X10'3 (4.5-11.0)
[2023-06-18 09:57] LABS: ALBUMIN 1.8 G/DL (3.4-5.0); ANION GAP 4 (8-16); BLOOD UREA NITROGEN 21 MG/DL (7-18); BUN/CREATININE RATIO 32.3 (10.0-20.0); CALCIUM 9.2 MG/DL (8.5-10.1); CHLORIDE 103 MMOL/L (99-107); CREATININE 0.65 MG/DL (0.40-0.90); GLUCOSE 166 MG/DL (70-104); MAGNESIUM 1.6 MG/DL (1.5-2.4); PHOSPHORUS 1.8 MG/DL (2.3-4.5); POTASSIUM 4.1 MMOL/L (3.5-5.1); SODIUM 136 MMOL/L (135-145); TOTAL CARBON DIOXIDE 28.9 MMOL/L (24-32); eCRCL 68 ML/MIN; eGFR 90 ML/MIN
[2023-06-18 10:10] LABS: ANISOCYTOSIS 1+; PLATELET ESTIMATE NORMAL; TOTAL CELLS COUNTED 100
[2023-06-18 10:11] LABS: TOXIC GRANULATION 1+
[2023-06-18] MEDS ORDERED: Neutra Phos packet PO PRN (10:55)
[2023-06-18] MEDS ORDERED: sodium phosphate inj. 30 MMOL in dextrose 5%-water 250 ML IV PRN (10:55)
[2023-06-18] MEDS ORDERED: sodium phosphate inj. 15 MMOL in dextrose 5%-water 250 ML IV PRN (10:55)
[2023-06-18] MEDS: Neutra Phos packet PO PRN ×2 (13:09→21:17)
[2023-06-18] MEDS ORDERED: acetaminophen 325mg tablet PO PRN (17:10)
--- NOTE | 2023-06-18 18:13 | NUR ---
Problems reprioritized. Patient report given, questions answered & plan of care reviewed with Dino LAZAR.
[2023-06-19] VITALS (14 sets, daily range): BP systolic 129–152; BP diastolic 66–85; PULSE 76–97; RESP 10–18; TEMP 97.5–98.3; O2SAT 92–95
[2023-06-19] MEDS: ipratropium/albuterol 3ml nebule NEB SCH ×5 (00:20→15:46)
[2023-06-19] MEDS: methylPREDNISolone sod succ/PF 40mg inj. IV SCH ×2 (01:02→09:22)
[2023-06-19] MEDS: buprenorphine/naloxone 8MG-2MG SUBlingual film SL PRN ×3 (01:12→09:20)
--- NOTE | 2023-06-19 04:15 | NUR ---
I AGREE WITH DIRECTOR OF TRAUMA'S ASSESSMENT
--- NOTE | 2023-06-19 06:17 | NUR ---
Patient report given Alexandra VARGAS questions answered & plan of care reviewed with .
[2023-06-19 06:19] LABS: HEMOGLOBIN 14.2 g/dl (12.0-16.0); MEAN PLATELET VOLUME 7.1 FL (7.4-10.4); WHITE BLOOD COUNT 16.7 X10'3 (4.5-11.0)
[2023-06-19 06:21] LABS: HEMATOCRIT 42.8 % (35.0-45.0); MEAN CORPUSCULAR HGB CONC 33.2 g/dL (33.0-36.5); MEAN CORPUSCULAR VOLUME 93.2 FL (78-98); PLATELET COUNT 344 X10'3 (140-440); RED BLOOD COUNT 4.59 X10'6 (4.20-5.60); RED CELL DISTRIBUTION WIDTH 15.9 % (11.5-14.5)
[2023-06-19 06:38] LABS: ALBUMIN 1.8 G/DL (3.4-5.0); ANION GAP 3 (8-16); BLOOD UREA NITROGEN 20 MG/DL (7-18); BUN/CREATININE RATIO 28.6 (10.0-20.0); CALCIUM 8.7 MG/DL (8.5-10.1); CHLORIDE 102 MMOL/L (99-107); GLUCOSE 142 MG/DL (70-104); MAGNESIUM 1.5 MG/DL (1.5-2.4); PHOSPHORUS 1.5 MG/DL (2.3-4.5); POTASSIUM 4.2 MMOL/L (3.5-5.1); SODIUM 136 MMOL/L (135-145); TOTAL CARBON DIOXIDE 31.3 MMOL/L (24-32); eCRCL 63 ML/MIN; eGFR 83 ML/MIN
[2023-06-19 06:51] LABS: ANISOCYTOSIS 1+; PLATELET ESTIMATE NORMAL; TOTAL CELLS COUNTED 100
[2023-06-19] MEDS: K and/or MAG REPLACEMENT MC SCH (08:00)
[2023-06-19] MEDS: lactose-reduced food (Ensure Enlive) - 237ml bottle PO SCH ×2 (08:00→13:00)
[2023-06-19] MEDS: levoFLOXACIN-Levaquin 750MG/D5 150 ML IV SCH (09:17)
[2023-06-19] MEDS: gabapentin 300mg capsule PO SCH (09:18)
[2023-06-19] MEDS: Neutra Phos packet PO PRN (09:36)
[2023-06-19] MEDS: normal saline 1000ml 1,000 ML IV SCH (09:45)
--- NOTE | 2023-06-19 14:45 | NUR ---
O2 Sat at rest on room air:84% If below 89%: Recovery O2 Sat at rest on 5LPM:___%:95% via HIGH FLOW NASAL CANNULA (mask/nasal cannula, etc..) No further documentation is necessary.
[2023-06-19] MEDS ORDERED: PRED10TA23 PO (14:47)
[2023-06-19] MEDS ORDERED: NICO-687 TOP (14:47)
[2023-06-19] MEDS ORDERED: LEVO-65 PO (14:47)
--- NOTE | 2023-06-19 17:38 | NUR ---
Pt D/C per hospitalist. PIV removed, cannula intact. Tele discontinued. All belongings taken home by patient. Home oxygen was delivered to patient room and taken home by patient. Discharge instructions reviewed, all questions and concerns addressed. Pt was wheeled down to lobby by nursing staff and driven home by spouse. Pt stable and appropriate for discharge.
== END 2023-06-19 17:56 | disposition home or self-care (01) | DRG 720 ==
LOC: ER 21:02 → ED HOLD 06-15 01:41 → PCU 3S 06-15 03:14
PROVIDERS: ADMIT Internal Medicine; ATTEND Family Medicine
PROC: 5A0935A Assistance with Respiratory Ventilation, Less than 24 Consecutive Hours, High Flow/Velocity Cannula (ICD-10-PCS; 2023-06-15)
PROC: B32T1ZZ Computerized Tomography (CT Scan) of Left Pulmonary Artery using Low Osmolar Contrast (ICD-10-PCS; principal; 2023-06-16)
PROC: B3201ZZ Computerized Tomography (CT Scan) of Thoracic Aorta using Low Osmolar Contrast (ICD-10-PCS; 2023-06-16)
PROC: B32S1ZZ Computerized Tomography (CT Scan) of Right Pulmonary Artery using Low Osmolar Contrast (ICD-10-PCS; 2023-06-16)
PROC: 5A0935A Assistance with Respiratory Ventilation, Less than 24 Consecutive Hours, High Flow/Velocity Cannula (ICD-10-PCS; 2023-06-16)
PROC: 5A0935A Assistance with Respiratory Ventilation, Less than 24 Consecutive Hours, High Flow/Velocity Cannula (ICD-10-PCS; 2023-06-17)
PROC: 5A0935A Assistance with Respiratory Ventilation, Less than 24 Consecutive Hours, High Flow/Velocity Cannula (ICD-10-PCS; 2023-06-18)
PROC: 5A0935A Assistance with Respiratory Ventilation, Less than 24 Consecutive Hours, High Flow/Velocity Cannula (ICD-10-PCS; 2023-06-19)
DX: A41.9 Sepsis, unspecified organism (principal); J96.20 Acute and chronic respiratory failure, unspecified whether with hypoxia or hypercapnia; G93.41 Metabolic encephalopathy; E43 Unspecified severe protein-calorie malnutrition; N17.8 Other acute kidney failure; J18.9 Pneumonia, unspecified organism; F32.A Depression, unspecified; F41.9 Anxiety disorder, unspecified; Z20.822 Contact with and (suspected) exposure to COVID-19; G89.29 Other chronic pain; J44.0 Chronic obstructive pulmonary disease with (acute) lower respiratory infection; Z98.891 History of uterine scar from previous surgery; Z88.6 Allergy status to analgesic agent; Z68.1 Body mass index [BMI] 19.9 or less, adult; Z90.710 Acquired absence of both cervix and uterus; Z88.0 Allergy status to penicillin; Z88.5 Allergy status to narcotic agent; Z79.899 Other long term (current) drug therapy
CPT/HCPCS: 36415; 36600; 70450; 71045; 71275; 72125; 80048; 80053; 80305; 80320; 81001; 82140; 82550; 82803; 83605; 83735; 83880; 84100; 84132; 84145; 84443; 84484; 85007; 85018; 85025; 87040; 87081; 87502; 87503; 87811; 94640; 94760; 96365; 96367; 96374; 96375; 97110; 97116; 97161; 97530; 99285; 99291; A4615; A6212; A6213; A6449; G0378; J0456; J0696; J1956; J2765; J2920; J2930; J3480; J3490; J7030; J7060; Q9967

== ENCOUNTER 2024-08-18 14:15 | Emergency (ER) | payer MEDICAID ==
[~2024-08-18] VITALS: Ht 167.6 cm; Wt 40.9 kg
[~2024-08-18 14:15] MED LIST changes: -AMIT50TA15 PO; +BUDE10.2 PO; -CEFD300C3 PO; -FLUT1DIS4 INH; +IPRA3AMP31 NEB; +NICO-687 TOP; -ZOLP5TAB8 PO
[2024-08-18] MEDS: LORazepam 2 mg/ml vial IV ONE (15:03)
[2024-08-18] MEDS ORDERED: levetiracetam inj 1,000 MG in normal saline 100ml IV soln 100 ML IV ONE (15:15)
[2024-08-18 15:24] LABS: BASOPHILS % (AUTO) 0.8 % (0-1); EOSINOPHILS # (AUTO) 0.1 X10'3 (0-0.9); EOSINOPHILS % (AUTO) 1.3 % (0-6); HEMATOCRIT 41.1 % (35.0-45.0); HEMOGLOBIN 13.6 g/dl (12.0-16.0); LYMPHOCYTES # (AUTO) 1.2 X10'3 (1.1-4.8); LYMPHOCYTES % (AUTO) 20.7 % (21-51); MEAN CORPUSCULAR HEMOGLOBIN 30.4 PG (27.0-31.0); MEAN CORPUSCULAR HGB CONC 33.2 g/dL (33.0-36.5); MEAN CORPUSCULAR VOLUME 91.8 FL (78-98); MEAN PLATELET VOLUME 7.6 FL (7.4-10.4); MONOCYTES # (AUTO) 0.3 X10'3 (0-0.9); MONOCYTES % (AUTO) 5.9 % (2-12); NEUTROPHILS # (AUTO) 4.1 X10'3 (1.8-7.7); NEUTROPHILS % (AUTO) 71.3 % (42-75); PLATELET COUNT 242 X10'3 (140-440); RED BLOOD COUNT 4.48 X10'6 (4.20-5.60); RED CELL DISTRIBUTION WIDTH 15.1 % (11.5-14.5); WHITE BLOOD COUNT 5.8 X10'3 (4.5-11.0)
[2024-08-18] MEDS: levetiracetam-NACL1000mg/100ml 100 ML IV ONE (15:40)
[2024-08-18 15:58] LABS: ALANINE AMINOTRANSFERASE 13 U/L (12-78); ALBUMIN 3.5 G/DL (3.4-5.0); ALKALINE PHOSPHATASE 69 IU/L (46-116); ANION GAP 7 (8-16); ASPARTATE AMINO TRANSFERASE 13 U/L (10-37); BILIRUBIN,TOTAL 0.3 MG/DL (0.1-1.0); BLOOD UREA NITROGEN 16 MG/DL (7-18); BUN/CREATININE RATIO 22.2 (10.0-20.0); CALCIUM 9.1 MG/DL (8.5-10.1); CHLORIDE 103 MMOL/L (99-107); CREATININE 0.72 MG/DL (0.40-0.90); GLUCOSE 109 MG/DL (70-104); POTASSIUM 4.4 MMOL/L (3.5-5.1); SODIUM 137 MMOL/L (135-145); TOTAL CARBON DIOXIDE 26.8 MMOL/L (24-32); TOTAL PROTEIN 7.1 G/DL (6.4-8.2); eCRCL 46 ML/MIN; eGFR 80 ML/MIN
[2024-08-18 16:03] LABS: FREE T4 (FREE THYROXINE) 0.95 NG/DL (0.73-1.40); THYROID STIMULATING HORMONE 2.02 ulU/ml (0.34-4.50)
[2024-08-18] MEDS: dexamethasone sod phosphate 10mg/ml inj IV STA (16:04)
[2024-08-18 19:30] LABS: BILIRUBIN,URINE NEGATIVE (Neg); CLARITY,URINE CLEAR (Clear); COLOR,URINE YELLOW (Yellow); GLUCOSE, URINE NEGATIVE (Neg); KETONES,URINE NEGATIVE (Neg); LEUKOCYTE ESTERASE ,URINE NEGATIVE (Neg); NITRITES, URINE NEGATIVE (Neg); OCCULT BLOOD,URINE SMALL (Neg); PROTEIN,URINE NEGATIVE (Neg); UROBILINOGEN,URINE 0.2 E.U/dL (0.2-1.0)
[2024-08-18 19:31] LABS: URINE AMPHETAMINE SCREEN NEGATIVE (Neg); URINE BARBITUATE SCREEN NEGATIVE (Neg); URINE BENZODIAZEPINES SCREEN NEGATIVE (Neg); URINE CANNABINOID SCREEN NEGATIVE (Neg); URINE COCAINE SCREEN NEGATIVE (Neg); URINE METHADONE SCREEN NEGATIVE (Neg); URINE OPIATE SCREEN NEGATIVE (Neg); URINE PHENCYCLIDINE SCREEN NEGATIVE (Neg)
[2024-08-18 19:52] LABS: ABG BASE EXCESS 2.5 mmol/L (-2.0-3.0); ABG HCO3 28.6 mmol/L (21.0-28.0); ABG OXYGEN SATURATION 89.8 % (94.0-98.0); ABG PCO2 (T) 49.6 mmHg (32.0-45.0); ABG PH (T) 7.378 (7.350-7.450); ABG PO2 (T) 56.6 mmHg (83.0-108.0); ALLEN'S TEST Modified; FHHb 9.9 % (0.0-5.0); FLOW 0 L/min; FMetHb 0.3 % (0.0-1.5); FO2Hb 86.8 % (94.0-98.0); MODE NASAL CANNULA; TOTAL HEMOGLOBIN 14.7 G/dl (12.0-16.0)
[2024-08-18 19:57] LABS: UA COLLECTION TYPE STRAIGHT CATH
[2024-08-18 20:06] LABS: BACTERIA,URINE NONE SEEN /HPF (Neg); RBC,URINE 0-2 /HPF (0-2); SQUAMOUS EPITHELIAL CELL,UR NONE SEEN /LPF (FEW); WBC,URINE 0-4 /HPF (0-4)
[2024-08-18] MEDS: levetiracetam inj 750 MG in normal saline 100ml IV soln 100 ML IV SCH (20:09)
[2024-08-18] MEDS: NORMAL SALINE IV SCH (20:45)
[2024-08-18] MEDS: DEXAMETHASONE IV SCH (20:45)
[2024-08-19] MEDS: normal saline 1000ml 1,000 ML IV ONE ×2 (02:43→08:31)
[2024-08-19] MEDS: haloperidol lactate 5mg/ml inj IM ONE (03:10)
[2024-08-19] MEDS ORDERED: buprenorphine/naloxone 8mg/2mg SL tablet SL PRN (07:35)
[2024-08-19] MEDS: gabapentin 300mg capsule PO ONE (07:47)
[2024-08-19] MEDS: LORazepam 2 mg/ml vial IV ONE ×2 (07:47→08:53)
[2024-08-19] MEDS: buprenorphine/naloxone 8MG-2MG SUBlingual film SL PRN (07:52)
[2024-08-19] MEDS ORDERED: levetiracetam inj 1,000 MG in normal saline 100ml IV soln 100 ML IV SCH (08:00)
[2024-08-19] MEDS: levetiracetam-NACL1000mg/100ml 100 ML IV SCH (08:06)
[2024-08-19 08:28] LABS: BASOPHILS # (AUTO) 0.1 X10'3 (0-0.2); BASOPHILS % (AUTO) 1.2 % (0-1); EOSINOPHILS % (AUTO) 0.3 % (0-6); HEMATOCRIT 45.4 % (35.0-45.0); HEMOGLOBIN 15.3 g/dl (12.0-16.0); LYMPHOCYTES # (AUTO) 2.2 X10'3 (1.1-4.8); LYMPHOCYTES % (AUTO) 25.1 % (21-51); MEAN CORPUSCULAR HEMOGLOBIN 30.2 PG (27.0-31.0); MEAN CORPUSCULAR HGB CONC 33.8 g/dL (33.0-36.5); MEAN CORPUSCULAR VOLUME 89.5 FL (78-98); MONOCYTES # (AUTO) 0.5 X10'3 (0-0.9); MONOCYTES % (AUTO) 5.9 % (2-12); NEUTROPHILS % (AUTO) 67.5 % (42-75); PLATELET COUNT 308 X10'3 (140-440); RED BLOOD COUNT 5.07 X10'6 (4.20-5.60); WHITE BLOOD COUNT 8.9 X10'3 (4.5-11.0)
[2024-08-19 08:32] LABS: ALANINE AMINOTRANSFERASE 12 U/L (12-78); ALBUMIN 3.8 G/DL (3.4-5.0); ALBUMIN/GLOBULIN RATIO 1.1 (1.1-1.5); ALKALINE PHOSPHATASE 71 IU/L (46-116); ANION GAP 10 (8-16); ASPARTATE AMINO TRANSFERASE 14 U/L (10-37); BILIRUBIN,TOTAL 0.8 MG/DL (0.1-1.0); BLOOD UREA NITROGEN 18 MG/DL (7-18); BUN/CREATININE RATIO 24.3 (10.0-20.0); CALCIUM 10.2 MG/DL (8.5-10.1); CHLORIDE 98 MMOL/L (99-107); CREATININE 0.74 MG/DL (0.40-0.90); GLUCOSE 108 MG/DL (70-104); POTASSIUM 4.2 MMOL/L (3.5-5.1); SODIUM 134 MMOL/L (135-145); TOTAL CARBON DIOXIDE 25.8 MMOL/L (24-32); TOTAL PROTEIN 7.3 G/DL (6.4-8.2); eCRCL 45 ML/MIN; eGFR 77 ML/MIN
[2024-08-19 12:30] VITALS: BP 118/75; PULSE 77; RESP 14; TEMP 98.9; O2SAT 97
== END 2024-08-19 13:34 | disposition short-term general hospital (02) ==
LOC: ER 14:15
DX: G40.901 Epilepsy, unspecified, not intractable, with status epilepticus (principal); F17.200 Nicotine dependence, unspecified, uncomplicated; F41.9 Anxiety disorder, unspecified; I10 Essential (primary) hypertension; J44.9 Chronic obstructive pulmonary disease, unspecified; F32.A Depression, unspecified; Z88.0 Allergy status to penicillin; Z88.5 Allergy status to narcotic agent; Z88.6 Allergy status to analgesic agent; Z88.8 Allergy status to other drugs, medicaments and biological substances; Z90.710 Acquired absence of both cervix and uterus; Z98.890 Other specified postprocedural states
CPT/HCPCS: 36415; 36600; 70450; 71045; 80053; 80305; 81001; 82803; 83605; 84439; 84443; 85018; 85025; 87040; 93005; 96361; 96365; 96366; 96372; 96375; 96376; 99285; J1100; J1630; J1953; J2060; J7030; 96367; A4353; A6213

== ENCOUNTER 2024-12-31 16:19 | Emergency (ER) | payer MEDICARE, MEDICAID ==
[~2024-12-31] VITALS: Ht 152.4 cm; Wt 40.0 kg
[~2024-12-31 16:19] MED LIST changes: +rocuronium 10mg/ml inj IV ONE
[2024-12-31 16:20] VITALS: TEMP 97.8
[2024-12-31] MEDS: rocuronium 10mg/ml inj IV ONE (16:43)
--- NOTE | 2024-12-31 16:43 | Physician Documentation ---
History of Present Illness ~ Chief Complaint: Code Blue Stated Complaint: CARDIAC ARREST Time Seen by MD: 16:42 [facility] 69-year-[facility] female presenting for syncope and collapse. Reportedly she was with her when she suddenly collapsed. He found her pulseless and performed CPR for 15 minutes. EMS arrived found her in VFib cardioverted her 1 time on recheck she was in asystole they performed 4 rounds of CPR falling which she had return of spontaneous circulation Medication Reconciliation Allergies: Coded Allergies: ibuprofen (Verified Allergy, Mild, urticaria, 08/18/24) Penicillins (Verified Allergy, Unknown, 08/18/24) morphine (Verified Adverse Reaction, Intermediate, syncope, 08/18/24) pregabalin (Verified Adverse Reaction, Intermediate, suicidal thoughts, 08/18/24) Scheduled Budesonide/Formoterol Fumarate (Symbicort 160-4.5 Mcg Inhaler), 1 PUFF PO DAILY, (Reported) Buprenorphine Hcl/Naloxone Hcl (Suboxone 8 Mg-2 Mg Sl Film), 3 STRIP SL DAILY, (Reported) Gabapentin (Gabapentin), 2 CAP PO TID, (Reported) Nicotine 21 MG Patch* (Habitrol 21 MG Patch*), 1 PATCH TOP DAILY Scheduled PRN Albuterol Sulfate (Albuterol Sulfate), 1 VIAL NEB Q4H PRN for SOB or wheezing, (Reported) Ipratropium/Albuterol Sulfate (Duoneb 2.5-0.5 Mg/3 Ml Soln), 3 ML NEB Q4H PRN for SOB or wheezing, (Reported) Past Medical History Past Medical History: COPD, Brain Cancer, Anxiety, Depression Past Surgical History: , hysterectomy Other Past Surgical History: History of diverticulitis status post open surgical repair Patient History: FH: cancer FATHER, FH: cardiovascular disease FATHER, Alcohol Use: None Drug Use: none Lives with: Family Lives In: Home Review of Systems Unable to obtain complete ROS: altered mental status, intubated Physical Exam Vital Signs: Temperature: 97.8, Source: Temporal, Heart Rate: 145, Respiratory Rate: 12, BP: 125/74, Pulse Oximetry: 99, Weight: 40.000 Oxygen Flow Rate: 0 Physical Exam Unresponsive GCS 3 No response to painful stimuli Right lower extremity swollen Procedures Intubation Intubation Method: orotracheal Medications: none ETT Confirmation: Ascultation, CO2 Detector, Esophageal Bulb, Direct Visualization, Condensation in ETT Breath Sounds After Intubation: equal Intubation Complications: no complications Post Intubation Xray: Yes Central Line Lumen: triple Central Line Procedure: betadine prep, sterile drapes applied, sterile dressing applied Position: femoral (R) Complications: none Post Position: sutured, good blood return Tolerated Procedure Well?: yes, no complications Progress Progress Note Dr. Peoples at bedside, discussed with her who understands her extremely poor prognosis and requests comfort measures Results/Orders Results/Orders Orders - ANILA GUADARRAMA MD Ct Head (12/31/24 16:24) Monitor (12/31/24 16:25) Saline Lock (12/31/24 16:25) Oxygen (12/31/24 16:25) Hs Troponin I W Calculations (12/31/24 18:25) Hs Troponin I W Calculations (12/31/24 19:25) Fentanyl-0.9 % Nacl/Pf (Fentanyl 1,000mc (12/31/24 16:35) * (A) Lara- Protocol * Q12H@07,19 (12/31/24 16:34) * Central Line/Picc Renewal Or (12/31/24 16:34) Cta Chest Pe (12/31/24 16:43) Ventilator Settings (12/31/24 ) Abg Current Settings (12/31/24 ) Sputum Inducement (12/31/24 ) Completed Orders - ANILA GUADARRAMA MD Cbc/Diff (12/31/24 16:25) PBNP (12/31/24 16:25) Electrocardiogram (12/31/24 16:25) CMP (12/31/24 16:25) Hs Troponin I W Calculations (12/31/24 16:25) Lidocaine 2% Jelly 11ml Syr (Glydo-Lidoc (12/31/24 16:35) Rocuronium Inj. (Zemuron Inj) (12/31/24 16:35) Midazolam 5 Mg/Ml 2ml Inj (Versed 5 Mg/M (12/31/24 17:20) Iohexol 350mg/Ml 100ml (Omnipaque 350mg/ (12/31/24 18:10) Medications Received in ER Medications (Trade) Dose Ordered Sig/Gregorio Route PRN Reason Start Time Stop Time Status Last Admin Dose Admin Fentanyl Citrate 100 ml @ 3.5 mls/hr [id number] ONCE IV 12/31/24 16:35 01/01/25 21:09 12/31/24 16:44 3.5 MLS/HR (Zemuron inj) 40 mg ONCE ONCE IV 12/31/24 16:35 12/31/24 16:42 DC 12/31/24 16:43 40 MG (Versed 5 MG/ML 2ML inj) 10 mg ONCE ONCE IV 12/31/24 17:20 12/31/24 17:21 DC 12/31/24 17:44 10 MG Vital Signs 12/31/24 12/31/24 12/31/24 12/31/24 16:20 16:30 16:44 16:51 Temp 97.8 Pulse 145 124 Resp 12 20 20 22 B/P (MAP) 125/74 Pulse Ox 99 97 O2 Flow Rate 0 FiO2 100 12/31/24 12/31/24 17:32 18:22 Pulse 117 97 Resp 20 10 B/P (MAP) 118/73 (88) Pulse Ox 99 83 FiO2 100 21 Laboratory Tests Test 12/31/24 16:32 12/31/24 17:02 White Blood Count 12.5 H Red Blood Count 4.61 Hemoglobin 13.2 Hematocrit 41.1 Mean Corpuscular Volume 89.0 Mean Corpuscular Hemoglobin 28.6 Mean Corpuscular Hemoglobin Concent 32.1 L Red Cell Distribution Width 15.4 H Platelet Count 328 Mean Platelet Volume 7.8 Neutrophils (%) (Auto) 74.4 Lymphocytes (%) (Auto) 22.4 Monocytes (%) (Auto) 2.2 Eosinophils (%) (Auto) 0.1 Basophils (%) (Auto) 0.9 Neutrophils # (Auto) 9.3 H Lymphocytes # (Auto) 2.8 Monocytes # (Auto) 0.3 Eosinophils # (Auto) 0.0 Basophils # (Auto) 0.1 CBC Comment Sodium Level 139 Potassium Level 3.7 Chloride Level 102 Carbon Dioxide Level 25.4 Anion Gap 12 Blood Urea Nitrogen 23 H Creatinine 1.18 H Estimated GFR/1.73 m2 45 BUN/Creatinine Ratio 19.5 Glucose Level 162 H Calcium Level 8.3 L Total Bilirubin 0.3 Aspartate Amino Transf (AST/SGOT) 95 H Alanine Aminotransferase (ALT/SGPT) 45 Alkaline Phosphatase 97 Troponin I High Sensitivity 79 *H Pro-B-Type Natriuretic Peptide 3490 H Total Protein 5.3 L Albumin 2.2 L Globulin 3.1 Albumin/Globulin Ratio 0.7 L Chemistry Comments Blood Gas Specimen Type Arterial Blood Gas Puncture Site Rr O2 Saturation 99.2 H Arterial Blood pH (Temp corrected) 7.248 *L Arterial Blood pCO2 (Temp correct) 49.5 H Arterial Blood pO2 (Temp corrected) 221.5 H Arterial Blood PO2/FiO2 Ratio 2.26 Arterial Blood HCO3 21.4 Arterial Blood Base Excess -6.4 L Arterial Blood Oxyhemoglobin 95.4 Arterial Blood Carboxyhemoglobin 3.5 H Arterial Blood Methemoglobin 0.3 Arterial Blood Deoxyhemoglobin 0.8 Brady Test Positive Blood Gas Hemoglobin 14.5 Blood Gas Temperature 36.1 Blood Gas Set Respiration Rate 18 Blood Gas Modality Vent - ac FiO2 100.0 Blood Gas Tidal Volume 300 Blood Gas PEEP 5 Blood Gas Critical Value Called To Dr. peoples EKG/XRAY/CT/US/VASC/MRI EKG : Additional Comment EKG independently interpreted by myself time 4:56 p.m. indication cardiac arrest anterolateral ST-elevation Medical Decision Making Additional info obtained from: family Findings 630 pm patient Differential Dx:Considerations: Include Cardiopulmonary arrest, Include Cardiogenic shock, Include Cardiac tamponade Departure Disposition: 20 Impression: Primary Impression: Ventricular fibrillation Additional Impression Text Patient with a history of COPD on chronic home oxygen therapy presenting for sudden syncopal episode with cardiac arrest. 15 minutes downtime prior to EMS arrival. VFib arrest cardioverted however asystole after cardioversion. Four rounds CPR with the eventual rock. She arrives here GCS 3. Cyanotic and cachectic. Right lower extremity swollen. Post [place] EKG ST-elevation. Concern for pulmonary embolism versus acute coronary syndrome for reverse hypoxic respiratory failure leading to VFib arrest. Regardless she is in a incredibly poor neurologic exam and after discussing with her elected for comfort measures Referrals: NO PRIMARY CARE PROVIDER (PCP) Critical Care Note Total Time (mins): 60 Critical Care Note The very real possibility of a deterioration of this patient's condition required the highest level of my preparedness for sudden, emergent intervention. I provided critical care services, which included medication orders, frequent reevaluations of the patient's condition and response to treatment, ordering and reviewing test results, and discussing the case with various consultants. Excludes time spent performing separately billable procedures. The critical care time associated with the care of the patient was 60 minutes in the management of cardiac arrest. Signature Scribe Signature: [email or web address] Attestation: ANILA Harrington MD December 31, 2024 16:43
[2024-12-31] MEDS: LidoCAINE 2% Topical Jelly 11mL syringe (UROJET) TOP ONE (16:44)
[2024-12-31] MEDS: FENTANYL-0.9 % NACL/PF 100 ML IV ONE (16:44)
[2024-12-31 16:51] VITALS: BP 127/91; PULSE 124; RESP 22; O2SAT 97
[2024-12-31 16:54] LABS: BASOPHILS # (AUTO) 0.1 X10'3 (0-0.2); BASOPHILS % (AUTO) 0.9 % (0-1); EOSINOPHILS % (AUTO) 0.1 % (0-6); HEMATOCRIT 41.1 % (35.0-45.0); HEMOGLOBIN 13.2 g/dl (12.0-16.0); LYMPHOCYTES # (AUTO) 2.8 X10'3 (1.1-4.8); LYMPHOCYTES % (AUTO) 22.4 % (21-51); MEAN CORPUSCULAR HEMOGLOBIN 28.6 PG (27.0-31.0); MEAN CORPUSCULAR HGB CONC 32.1 g/dL (33.0-36.5); MEAN PLATELET VOLUME 7.8 FL (7.4-10.4); MONOCYTES # (AUTO) 0.3 X10'3 (0-0.9); MONOCYTES % (AUTO) 2.2 % (2-12); NEUTROPHILS # (AUTO) 9.3 X10'3 (1.8-7.7); NEUTROPHILS % (AUTO) 74.4 % (42-75); PLATELET COUNT 328 X10'3 (140-440); RED BLOOD COUNT 4.61 X10'6 (4.20-5.60); RED CELL DISTRIBUTION WIDTH 15.4 % (11.5-14.5); WHITE BLOOD COUNT 12.5 X10'3 (4.5-11.0)
--- NOTE | 2024-12-31 16:58 | ELECTROCARDIOGRAPH REPORT ---
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 Donta Cameron Measurements Intervals [place] Rate: 125 P: 78 NE: 122 QRS: 25 QRSD: 76 T: 58 QT: 324 QTc: 468 Interpretive Statements Sinus tachycardia Anterior infarct, acute (LAD) Electronically Signed On 01-03-2025 21:45:[address] Donta Cameron Please click the below link to view image of tracing.
[2024-12-31 17:02] LABS: ALANINE AMINOTRANSFERASE 45 U/L (12-78); ALBUMIN 2.2 G/DL (3.4-5.0); ALBUMIN/GLOBULIN RATIO 0.7 (1.1-1.5); ALKALINE PHOSPHATASE 97 IU/L (46-116); ANION GAP 12 (8-16); ASPARTATE AMINO TRANSFERASE 95 U/L (10-37); BILIRUBIN,TOTAL 0.3 MG/DL (0.1-1.0); BLOOD UREA NITROGEN 23 MG/DL (7-18); BUN/CREATININE RATIO 19.5 (10.0-20.0); CALCIUM 8.3 MG/DL (8.5-10.1); CHLORIDE 102 MMOL/L (99-107); CREATININE 1.18 MG/DL (0.40-0.90); GLUCOSE 162 MG/DL (70-104); POTASSIUM 3.7 MMOL/L (3.5-5.1); SODIUM 139 MMOL/L (135-145); TOTAL CARBON DIOXIDE 25.4 MMOL/L (24-32); TOTAL PROTEIN 5.3 G/DL (6.4-8.2); eCRCL 28 ML/MIN; eGFR 45 ML/MIN
[2024-12-31 17:05] LABS: ABG BASE EXCESS -6.4 mmol/L (-2.0-3.0); ABG HCO3 21.4 mmol/L (21.0-28.0); ABG OXYGEN SATURATION 99.2 % (94.0-98.0); ABG PCO2 (T) 49.5 mmHg (32.0-45.0); ABG PH (T) 7.248 (7.350-7.450); ABG PO2 (T) 221.5 mmHg (83.0-108.0); ALLEN'S TEST POSITIVE; FCOHb 3.5 % (0.5-1.5); FHHb 0.8 % (0.0-5.0); FMetHb 0.3 % (0.0-1.5); FO2Hb 95.4 % (94.0-98.0); MODE VENT - AC; PATIENT TEMPERATURE 36.1; PEEP 5 cm H2O; RESPIRATORY RATE 18 b/min; TIDAL VOLUME 300 mL; TOTAL HEMOGLOBIN 14.5 G/dl (12.0-16.0)
[2024-12-31 17:10] LABS: PRO BRAIN NATRIURETIC PEPTIDE 3490 PG/ML (0-125)
[2024-12-31 17:32] VITALS: BP 118/73
[2024-12-31] MEDS: MIDAZolam 5mg/ml 2ml vial IV ONE (17:44)
[2024-12-31] MEDS ORDERED: iohexol 350MG/ML 100ml bottle IV ONE (18:10)
[2024-12-31 18:22] VITALS: PULSE 97; RESP 10; O2SAT 83
== END 2024-12-31 22:32 ==
LOC: ER 16:20
DX: I49.01 Ventricular fibrillation (principal); J44.9 Chronic obstructive pulmonary disease, unspecified; F41.9 Anxiety disorder, unspecified; F32.A Depression, unspecified; Z88.0 Allergy status to penicillin; Z88.5 Allergy status to narcotic agent; Z88.6 Allergy status to analgesic agent; Z88.8 Allergy status to other drugs, medicaments and biological substances; Z90.710 Acquired absence of both cervix and uterus
CPT/HCPCS: 31500; 36415; 36556; 36600; 80053; 82803; 83880; 84484; 85018; 85025; 93005; 94002; 96365; 99291; C1751; C1758; J2250; J3010; J3490; 36568; 96375; Q9967